=== PATIENT | male | born 1960 | race Caucasian/White ===

== ENCOUNTER 2021-07-18 11:41 | Emergency (ER) | payer MEDICARE, SELFPAY ==
--- NOTE | ~2021-07-18 | XR_ITS ---
EXAMINATION: XR chest 2V DATE: 07/18/2021 12:08 INDICATION: Cough. Flulike symptoms. TECHNIQUE: Frontal and lateral views of the chest were obtained. COMPARISON: CT abdomen 01/02/2008 FINDINGS: The chest demonstrates clear lungs without pneumonia, pleural effusion, or pneumothorax. Th e heart size is normal. Epidural electrodes are noted. IMPRESSION: 1. No acute cardiopulmonary disease. Reviewed, dictated and finalized at location A.
[2021-07-18 11:49] VITALS: BP 151/92; PULSE 86; RESP 16; TEMP 36.4; O2SAT 100
[2021-07-18 11:51] VITALS: BP 151/92; PULSE 86; RESP 16; TEMP 36.4; O2SAT 100
--- NOTE | 2021-07-18 11:51 | ED.URI ---
HPI - URI/Sore Throat General Chief Complaint: Upper Respiratory Infection Stated Complaint: Cough Time Seen by Provider: 07/18/21 11:51 Source: patient and RN notes reviewed Mode of arrival: ambulatory Limitations: no limitations History of Present Illness HPI Narrative: 61-year-old male presented for complaint of cough and wheezing, onset 5 days, worsening over the past 2 days. Endorses diagnosis of influenza about 9 days ago. Symptoms improved for short time prior to the coughing. Cough is nonproductive. Endorses hoarse voice without sore throat today. Endorses postnasal drainage, cough/wheezing worse when laying down. Denies nausea, vomiting, diarrhea, shortness of breath. He has not been vaccinated for COVID or flu. MD elicited complaint: cough Related Data Home Medications Medication Instructions Recorded Confirmed aspirin 81 mg tablet,delayed 81 mg PO DAILY 03/24/19 03/07/21 release Allergies Allergy/AdvReac Type Severity Reaction Status Date / Time clavulanic acid Allergy Severe Anaphylaxis Verified 03/07/21 11:42 [From Augmentin] amoxicillin Allergy Unknown Unknown Verified 03/07/21 11:42 cefuroxime Allergy Unknown Unknown Verified 03/07/21 11:42 Penicillins Allergy Unknown Unknown Verified 03/07/21 11:42 pregabalin Allergy Unknown Unknown Verified 03/07/21 11:42 Review of Systems Review of Systems: CONSTITUTIONAL:denies malaise, chills, sweats, fever EYES: Denies visual changes, redness, or discharge ENT: Reports rhinorrhea, congestion, denies sinus pain, otalgia, sore throat CARDIOVASCULAR: Denies chest pain, palpitations, edema RESPIRATORY: Reports cough, post nasal drainage. Denies dyspnea GASTROINTESTINAL: Denies abdominal pain, nausea, vomiting, diarrhea SKIN: Denies rash or itching MUSCULOSKELETAL: denies myalgia NEUROLOGIC: Denies headache PMFSH Past Medical History Medical History (Updated 07/18/21 @ 12:26 by Isabel Araya APRN) Arthritis Parkinson disease Skin cancer of nose Skin lesion Spinal cord stimulator status Surgical History Surgical History History of hernia repair Family History Family History Mother Family history of transient ischemic attacks Family history of elevated blood lipids Father Family history of elevated blood lipids Family history of cardiovascular disease Cerebrovascular accident Family history of arthritis Family history of Alzheimer's disease Grandparent Cerebrovascular accident Family history of arthritis Family history of Alzheimer's disease Sibling Family history of arthritis Family history of lung cancer Family history of primary malignant neoplasm of liver Family history of malignant neoplasm of kidney Social History Social History Smoking status: Never smoker Second hand tobacco smoke exposure: No Alcohol intake: never Substance use: current Substance use type: marijuana Other substance usage details: MEDICAL CANABIS Additional occupation/education comments: DISABILITY. Gender identity (if verbalized by the patient): Male Exam Narrative: GENERAL: Ill-appearing, nontoxic HEAD: Normocephalic EYES: conjunctivae clear ENT: Mucous membranes moist. TM pearly cano with dull light reflex bilaterally; no tragal tenderness. Hoarse voice. Oropharynx erythematous without lesions or exudate, no drooling, no trismus, uvula midline. No tripod positioning, muffled voice, soft palate or pharyngeal wall bulging NECK: Supple. No lymphadenopathy CHEST: Clear to auscultation, breath sounds equal. No wheezing, rhonchi, rales, or stridor. No respiratory distress, speaks in full sentences. Cough is nonproductive HEART: Regular rate and rhythm. No murmur heard. SKIN: Warm, dry, no rash. NEURO: Alert and oriented x3. PSYCH: Normal mood and affect
== END 2021-07-18 12:39 | disposition home or self-care (01) ==
PROVIDERS: Emergency Provider Nurse Practitioner Family; PCP Family Medicine
DX: J40 Bronchitis, not specified as acute or chronic (principal); F12.90 Cannabis use, unspecified, uncomplicated; M19.90 Unspecified osteoarthritis, unspecified site; G20 Parkinson's disease; Z85.828 Personal history of other malignant neoplasm of skin; Z96.82 Presence of neurostimulator; Z79.82 Long term (current) use of aspirin
CPT/HCPCS: 71046; 99213; G0463

== ENCOUNTER 2023-11-08 01:50 | Day surgery (SDC) | payer MEDICARE, SELFPAY ==
[2023-10-23 14:36] VITALS: BMI 24.8
--- NOTE | 2023-10-29 15:39 | PC.NURSE ---
Spoke with Dr. Valdivia anesthesia provider regarding pt having tremors from Parkinsons and severe back pain that he treats with cannabis. Dr. Valdivia states it is ok for this patient to smoke that morning prior to coming in for procedure. I did relay this to the patient.
[2023-11-08 08:23] VITALS: BP 138/76; PULSE 87; RESP 20; TEMP 35.5; O2SAT 100; BMI 24.6
[2023-11-08] MEDS: LACTATED RINGERS 1,000 ML 150 ML IV CONT (08:34)
--- NOTE | 2023-11-08 08:36 | WPDANESEPPF ---
Anes - Initial Pre Proc Eval Procedure: Operation Date: 11/08/23 09:30 Proposed Procedures p Colonoscopy - Xander Morrell MD Date/Time: 11/08/23 08:36 Surgeon: Xander Morrell MD Pre Op Diagnosis: Other fecal abnormalities Patient Data Age: 63 Gender: M Height: 1.7 m Weight: 71.4 kg Last Vital Signs Temp 35.5 C L 11/08/23 08:23 Pulse 87 11/08/23 08:23 Resp 20 11/08/23 08:23 BP 138/76 11/08/23 08:23 Pulse Ox 100 11/08/23 08:23 O2 Del Method Room Air 11/08/23 08:23 Allergies Allergy/AdvReac Type Severity Reaction Status Date / Time clavulanic acid Allergy Severe Anaphylaxis Verified 11/08/23 08:22 [From Augmentin] amoxicillin Allergy Unknown Unknown Verified 11/08/23 08:22 cefuroxime Allergy Unknown Unknown Verified 11/08/23 08:22 Penicillins Allergy Unknown Unknown Verified 11/08/23 08:22 pregabalin Allergy Unknown Unknown Verified 11/08/23 08:22 Home Medications Medication Instructions Recorded Confirmed Type aspirin 81 mg tablet,delayed 81 mg PO DAILY 03/24/19 11/08/23 History release (Adult Low Dose Aspirin) metoprolol succinate 25 mg 12.5 mg PO DAILY #45 tabs 10/09/22 11/08/23 Rx tablet,extended release 24 hr fenofibrate micronized 134 mg 134 mg PO DAILY #90 caps 03/26/23 11/08/23 Rx capsule rosuvastatin 40 mg tablet See Rx Instructions .Route 09/18/23 11/08/23 Rx .COMPLEX #45 tabs Patient hx anesthesia problems: none Family hx anesthesia problems: none Results Review: All pre-operative results and documents have been reviewed as part of the pre-operative evaluation. [facility] Past Medical History Medical History Arthritis Parkinson disease Skin cancer of nose Skin lesion Spinal cord stimulator status Surgical History Surgical History History of hernia repair Family History Family History Mother Family history of transient ischemic attacks Family history of elevated blood lipids Father Family history of elevated blood lipids Family history of cardiovascular disease Cerebrovascular accident Family history of arthritis Family history of Alzheimer's disease Grandparent Cerebrovascular accident Family history of arthritis Family history of Alzheimer's disease Sibling Family history of arthritis Family history of lung cancer Family history of primary malignant neoplasm of liver Family history of malignant neoplasm of kidney Social History Social History Smoking status: Never smoker Second hand tobacco smoke exposure: No Alcohol intake: never Substance use: current Substance use type: marijuana Other substance usage details: CANNABIS OIL BID, GUMMY AT HS, SMOKES MARIJUANA DURING DAY FOR PAIN/TREMORS Last use: DAILY Lack of Transportation: No Lack of Food: Never True Current Housing: I Have Housing Concerned About Future Housing: No Difficulty Paying Gas/Electric Bills: No Difficulty Paying for Meds: No Currently Unemployed: No Education: Trade/Vocational Certificate Difficulty w/ Childcare or Family Care: No Living arrangements: with family Additional occupation/education comments: DISABILITY. Gender identity (if verbalized by the patient): Male Spiritual care concerns: No Anes - Eval Final PreProcedure Day of Procedure 11/08/23 08:36 Patient weight: normal Heart: regular rate and rhythm Lungs: clear to auscultation Airway: Mallampati scale class II Neurological: alert and oriented Last oral intake: >/= 8 hours ASA classification: III Emergent: no Anesthetic plan: proceed Anesthesia type and monitoring: general GIVS and standard monitoring Results Review: All pre-operative results and documents have been reviewed as part of the pre-operat
--- NOTE | 2023-11-08 08:40 | PM.HPGS ---
History of Present Illness History of Present Illness Consent: Risks, benefits, and alternatives have been discussed and questions answered. Patient agrees to proceed with procedure. Chief complaint: Other fecal abnormalities Narrative: Mauri Gregory is a 63 year old male here with + cologuard, last colonoscopy about 10 years ago Review of Systems Review of Systems: All systems reviewed & are unremarkable except as noted in HPI and below PMFSH Past Medical History Medical History (Updated 11/08/23 @ 08:43 by Xander Morrell MD) Arthritis Parkinson disease Positive colorectal cancer screening using Cologuard test Skin cancer of nose Skin lesion Spinal cord stimulator status Surgical History Surgical History History of hernia repair Family History Family History Mother Family history of transient ischemic attacks Family history of elevated blood lipids Father Family history of elevated blood lipids Family history of cardiovascular disease Cerebrovascular accident Family history of arthritis Family history of Alzheimer's disease Grandparent Cerebrovascular accident Family history of arthritis Family history of Alzheimer's disease Sibling Family history of arthritis Family history of lung cancer Family history of primary malignant neoplasm of liver Family history of malignant neoplasm of kidney Social History Social History Smoking status: Never smoker Second hand tobacco smoke exposure: No Alcohol intake: never Substance use: current Substance use type: marijuana Other substance usage details: CANNABIS OIL BID, GUMMY AT HS, SMOKES MARIJUANA DURING DAY FOR PAIN/TREMORS Last use: DAILY Lack of Transportation: No Lack of Food: Never True Current Housing: I Have Housing Concerned About Future Housing: No Difficulty Paying Gas/Electric Bills: No Difficulty Paying for Meds: No Currently Unemployed: No Education: Trade/Vocational Certificate Difficulty w/ Childcare or Family Care: No Living arrangements: with family Additional occupation/education comments: DISABILITY. Gender identity (if verbalized by the patient): Male Spiritual care concerns: No Meds Home Medications and Allergies Home Medications Medication Instructions Recorded Confirmed Type aspirin 81 mg tablet,delayed 81 mg PO DAILY 03/24/19 11/08/23 History release (Adult Low Dose Aspirin) metoprolol succinate 25 mg 12.5 mg PO DAILY #45 tabs 10/09/22 11/08/23 Rx tablet,extended release 24 hr fenofibrate micronized 134 mg 134 mg PO DAILY #90 caps 03/26/23 11/08/23 Rx capsule rosuvastatin 40 mg tablet See Rx Instructions .Route 09/18/23 11/08/23 Rx .COMPLEX #45 tabs Allergies Allergy/AdvReac Type Severity Reaction Status Date / Time clavulanic acid Allergy Severe Anaphylaxis Verified 11/08/23 08:22 [From Augmentin] amoxicillin Allergy Unknown Unknown Verified 11/08/23 08:22 cefuroxime Allergy Unknown Unknown Verified 11/08/23 08:22 Penicillins Allergy Unknown Unknown Verified 11/08/23 08:22 pregabalin Allergy Unknown Unknown Verified 11/08/23 08:22 Vital Signs Vital Signs - 24 hr 11/08/23 08:23 Temperature 96 F L Pulse Rate 87 Respiratory Rate 20 Blood Pressure 138/76 Pulse Oximetry 100 Oxygen Delivery Room Air Exam Const: General: comfortable and no acute distress HENMT: Face/Nose/Sinus: Normal nares present Eyes: General: appearance normal, both eyes and all related structures Neck: Neck: no JVD Resp: Auscultation: clear to auscultation bilaterally Cardio: Rate: regular rate Rhythm: regular rhythm GI: Inspection: non-distended GI Palp: Yes Soft to palpation Skin: General skin exam: normal color Neuro: General: gait normal Speech: normal speech Extrem: Gener
[2023-11-08 08:56] VITALS: BP 111/66; PULSE 71; RESP 23; O2SAT 96
[2023-11-08 09:06] VITALS: BP 109/65; PULSE 63; RESP 22; O2SAT 97
[2023-11-08 09:16] VITALS: BP 126/85; PULSE 61; RESP 19; O2SAT 99
== END 2023-11-08 09:29 | disposition home or self-care (01) ==
PROVIDERS: PCP Family Medicine; Visit Provider Internal Medicine Gastroenterology
PROC: 0DJD8ZZ Inspection of Lower Intestinal Tract, Via Natural or Artificial Opening Endoscopic (ICD-10-PCS; CPT 45378; principal; 2023-11-08 09:30)
DX: R19.5 Other fecal abnormalities (principal); D12.3 Benign neoplasm of transverse colon; K64.8 Other hemorrhoids; G20.A1 Parkinson's disease without dyskinesia, without mention of fluctuations
CPT/HCPCS: 45385; 88305; J2704; J7120

== ENCOUNTER 2024-04-11 11:59 | Emergency (ER) | payer MEDICARE, SELFPAY ==
--- NOTE | 2024-04-11 12:05 | ED_ITS ---
HPI - URI/Sore Throat General Chief Complaint: Upper Respiratory Infection Stated Complaint: Sinus/Left Ear Irritation Time Seen by Provider: 04/11/24 12:06 Source: patient Mode of arrival: ambulatory Limitations: no limitations History of Present Illness HPI Narrative: Mauri is a 64-year-old male patient presenting to the clinic today with complaints of sinus congestion, cough for over 1 week. Reports he started having left ear pain today. He reports felt feverish 1 night and ended up with sweats. Denies any chest pain or shortness of breath. Coughing up some green phlegm with some sinus pressure. Main concern today is the left ear pain. States it feels very hot and painful. MD elicited complaint: fever, cough, rhinorrhea, nasal congestion, sinus pain and other (Ear pain) Related Data Home Medications ?Medication ?Instructions ?Recorded ?Confirmed ?Last Taken ?Type aspirin 81 mg tablet,delayed 81 mg PO DAILY 03/24/19 11/08/23 11/07/23 History release (Adult Low Dose Aspirin) Allergies Allergy/AdvReac Type Severity Reaction Status Date / Time clavulanic acid (From Allergy Severe Anaphylaxis Verified 04/11/24 12:18 Augmentin) amoxicillin Allergy Unknown Unknown Verified 04/11/24 12:18 cefuroxime Allergy Unknown Unknown Verified 04/11/24 12:18 Penicillins Allergy Unknown Unknown Verified 04/11/24 12:18 pregabalin Allergy Unknown Unknown Verified 04/11/24 12:18 Review of Systems Review of Systems: Pertinent positives per HPI. Patient denies any fever, chills, rash, headache, visual changes, dizziness, shortness of breath, chest pain, palpitations, nausea, vomiting, diarrhea, constipation, abdominal pain, or any urinary issues. [facility] Past Medical History Medical History Positive colorectal cancer screening using Cologuard test Parkinson disease Skin lesion Skin cancer of nose Spinal cord stimulator status Arthritis Surgical History Surgical History History of hernia repair Family History Family History Mother Family history of transient ischemic attacks Family history of elevated blood lipids Father Family history of elevated blood lipids Family history of cardiovascular disease Cerebrovascular accident Family history of arthritis Family history of Alzheimer's disease Grandparent Cerebrovascular accident Family history of arthritis Family history of Alzheimer's disease Sibling Family history of arthritis Family history of lung cancer Family history of primary malignant neoplasm of liver Family history of malignant neoplasm of kidney Social History Social History Smoking status: Never smoker Second hand tobacco smoke exposure: No Alcohol intake: never Substance use: current Substance use type: marijuana Other substance usage details: CANNABIS OIL BID, GUMMY AT HS, SMOKES MARIJUANA DURING DAY FOR PAIN/TREMORS Last use: DAILY Lack of Transportation: No Lack of Food: Never True Current Housing: I Have Housing Concerned About Future Housing: No Difficulty Paying Gas/Electric Bills: No Difficulty Paying for Meds: No Currently Unemployed: No Education: Trade/Vocational Certificate Difficulty w/ Childcare or Family Care: No Living arrangements: with family Additional occupation/education comments: DISABILITY. Gender identity (if verbalized by the patient): Male Spiritual care concerns: No Comments At the time of my signature, I reviewed and agree with the nursing past medical, surgical, social, and family history. There is no relevant family history pertinent to the patient complaint. Exam Narrative: General: Well-developed, well nourished, in no apparent distress Head: Normocephalic, atraumatic Eyes: Pupils equally round and reactive to light bilaterally, EOM intact, sclera and conjunctive clear, no discharge, lids normal Ears: TMs intact, bulging, red, left greater than right,, ear canals clear, no drainage, grossly hearing normal. Nose: Nares patent, green nasal discharge, the septum, moderate inflammation, maxillary and frontal sinus tenderness. Mouth: Oral pharynx red without lesions or masses, good dentition, MMM. Postnasal drip Neck: Supple, trachea midline, no enlargement of anterior or posterior cervical nodes, no thyroid masses or goiter palpable. Cardio: Regular rate and rhythm, s1 and s2 normal, no murmur appreciated. Resp: Faint wheezing in the right upper lobe, no rhonchi, rales, or rubs Course Course Emergency Course: Portions of this record may have been created with voice recognition software. Level of Care: Express Care Visit Vital Signs Vital signs: Vital Signs Temperature 36.9 C 04/11/24 12:15 Pulse Rate 96 04/11/24 12:15 Respiratory Rate 18 04/11/24 12:15 Blood Pressure 136/91 H 04/11/24 12:15 Pulse Oximetry 100 04/11/24 12:15 Oxygen Delivery Room Air 04/11/24 12:15 Temperature 36.9 C 04/11/24 12:15 Pulse Rate 96 04/11/24 12:15 Respiratory Rate 18 04/11/24 12:15 Blood Pressure 136/91 H 04/11/24 12:15 Pulse Oximetry 100 04/11/24 12:15 Oxygen Delivery Room Air 04/11/24 12:15 Vital signs reviewed MDM - URI/Sore Throat MDM Narrative Medical decision making narrative: At the time of visit patient is resting comfortably on the exam table. Patient appears to be nontoxic. Plan: I suspect patient has sinusitis/bronchitis/bilateral otitis media. Prescription for azithromycin and albuterol inhaler was sent to the pharmacy. Supportive measures were discussed with the patient and they voiced understanding discharge instructions and agrees to treatment plan. Return precautions reviewed Differential Diagnosis Differential diagnosis: Likely upper respiratory infection, otitis media, sinusitis, viral infection, bronchitis, influenza, pharyngitis and other (COVID) Discharge Plan Discharge Clinical Impression: Sinobronchitis, Bilateral otitis media Patient Disposition: Home, Self-Care Condition: Stable Instructions: Antibiotic Form, Ear Infection (ED), Acute Bronchitis (ED), Rhinosinusitis (ED) Additional Instructions: Take prescription medications only as prescribed-azithromycin and albuterol inhaler Increase fluids and stay well hydrated Tylenol/motrin for pain/fever Flonase and OTC antihistamines as directed Vicks vapor rub to open sinuses Sinus rinses for congestion Cepacol spray, cough drops, throat lozenges, warm tea with honey/lemon, gargle salt water to soothe throat BRAT diet for diarrhea Clear liquids x 24 hours then advance as tolerated for nausea/vomiting Go to the ED if you develop a worsening in your condition- high fever not controlled by Tylenol or Motrin, dehydration, weakness, lethargy, shortness of breath, or chest pain. Follow up with your PCP in 3-5 days if symptoms persist. Patient Language: Australian Prescriptions: New azithromycin 250 mg tablet See Rx Instructions .ROUTE .COMPLEX Qty: 6 0RF Rx Instructions: For 250 mg dose pack: take 500 mg today (day 1), then 250 mg for 4 days (days 2-5) albuterol sulfate 90 mcg/actuation HFA aerosol inhaler 2 puff inhalation Q4-6H PRN (Reason: shortness of breath or wheezing) 30 Days Qty: 8.5 0RF No Action aspirin [Adult Low Dose Aspirin] 81 mg tablet,delayed release (DR/EC) 81 mg PO DAILY rosuvastatin 40 mg tablet See Rx Instructions .ROUTE .COMPLEX Qty: 45 4RF Dose Instruction: TAKE 1/2 TABLET EVERY DAY Rx Instructions: TAKE 1/2 TABLET EVERY DAY metoprolol succinate 25 mg tablet extended release 24 hr 12.5 mg PO DAILY Qty: 45 5RF fenofibrate micronized 134 mg capsule 134 mg PO DAILY Qty: 90 3RF Follow-up/Referrals: Lori Roberts MD [Primary Care Provider] - Time of Disposition: 12:28 Quality NIHSS Nursing Documentation ED NIHSS nursing documentation: reviewed/agree
[2024-04-11 12:15] VITALS: BP 136/91; PULSE 96; RESP 18; TEMP 36.9; O2SAT 100
== END 2024-04-11 12:48 | disposition home or self-care (01) ==
PROVIDERS: Emergency Provider Nurse Practitioner Family; PCP Family Medicine
DX: J32.9 Chronic sinusitis, unspecified (principal); J40 Bronchitis, not specified as acute or chronic; H66.93 Otitis media, unspecified, bilateral; F12.90 Cannabis use, unspecified, uncomplicated; G20.A1 Parkinson's disease without dyskinesia, without mention of fluctuations; M19.90 Unspecified osteoarthritis, unspecified site; Z96.82 Presence of neurostimulator; Z79.82 Long term (current) use of aspirin
CPT/HCPCS: 99213; G0463